=== PATIENT | female | born 1965 | race Caucasian/White ===

== ENCOUNTER 2016-11-27 02:20 | Inpatient (IN) | payer OTHER ==
--- NOTE | ~2016-11-27 | HP ---
Unit #: [id number] #: [id number] Patient: GANESH NEFF [id number] [address] [place], [place] [address] [id number] MR#: [id number] NAME: GANESH NEFF ROOM: 47 Age: 50 Sex: F Admission Date: 11/27/2016 : 1965 Attending Physician: Aretha Schrader M.D. Primary Care Physician: Yoselin Trevizo M.D. HISTORY AND PHYSICAL ADMISSION DIAGNOSES 1. Acute pancreatitis. 2. Tobacco use. 3. Hypokalemia. 4. Questionable hypertension. HISTORY OF PRESENT ILLNESS The patient is a 50-year-old female, a patient of Dr. Trevizo, well known to me secondary to previous admission last July for the similar problems with the acute pancreatitis. She comes in with complaints of epigastric sharp pain which she describes as "labor pain", 10/10 at the worst for three days, also complains of some nausea, denies any vomiting, denies any fever or chills, denies any chest pain, headache, dizziness or syncope. Also denies any dysuria, states that her pain started about three days ago and gradually getting worse, denies any bloody stools or hematemesis. REVIEW OF SYSTEMS A 12-point review of systems on this patient is basically negative except as above. PAST MEDICAL HISTORY Past medical history is significant for history of pancreatitis. PAST SURGICAL HISTORY Past surgical history is significant for tubal ligation. HOME MEDICATIONS None. ALLERGIES No known drug allergies. SOCIAL HISTORY She continues to smoke and is a lifetime smoker, denies any alcohol or illicit drugs. FAMILY HISTORY Unremarkable. PHYSICAL EXAMINATION GENERAL: Patient is a 50-year-old female not in acute distress. VITAL SIGNS: Blood pressure 174/93, heart rate 70, respirations 16, Unit #: [id number] #: [id number] Patient: GANESH NEFF temperature 97.8. HEENT: Head is atraumatic. Pupils equal, round and reactive to light and accommodation. Extraocular muscles intact. Oropharynx clear. NECK: Neck is supple. No mass. No JVD. No bruits. CHEST: Diminished at the bases but generally clear. CARDIOVASCULAR EXAM: S1, S2. No murmurs. ABDOMEN: Abdomen is soft but tender at the epigastric area. No rebound tenderness. Bowel sounds are present but diminished. EXTREMITIES: Lower extremities without any cyanosis, clubbing or edema. NEUROLOGIC: Neurologically patient grossly intact. No focal deficits. Alert and oriented x3. DIAGNOSTIC STUDIES LABORATORY: Lipase at 357, potassium of 3.3, blood glucose 115, otherwise unremarkable. White count 9.1, hemoglobin and hematocrit 13.3 and 40. ASSESSMENT AND PLAN 1. Rimci-qs-tfhecbn pancreatitis: Status post evaluation per GI. Follow up on MRCP ordered per Dr. Godoy. Continue gut rest. Continue IV fluids. 2. Tobacco use: Counseled on the importance of quitting. 3. Hypokalemia: Replace per protocol. Check magnesium level. 4. Questionable hypertension: Will treat with p.r.n. hydralazine. Consider discharging with the BP meds if still elevated once pancreatitis resolves and patient pain free. 5. GI and DVT prophylaxis: Continue PPI and SCDs. Dictated by Brandon Zheng M.D. OC/cf TD: 11/27/2016 20:59 JOB #: [id number] HISTORY AND PHYSICAL Page 1 of 1 X Brandon Zheng MD X HISTORY AND PHYSICAL
--- NOTE | ~2016-11-27 | CO ---
Unit #: [id number] #: [id number] Patient: GANESH NEFF [id number] [address] [address] [id number] I MR#: [id number] NAME: GANESH NEFF ROOM: 47 Age: 50 Sex: F Admission Date: 11/27/2016 : 1965 Attending Physician: Aretha Schrader M.D. Primary Care Physician: Yoselin Trevizo M.D. Consultation Date: 11/27/2016 CONSULTATION REPORT REASON FOR CONSULTATION Acute pancreatitis. HISTORY OF PRESENT ILLNESS The patient states she was in her usual state of health until about one week ago, when she began to have persistent epigastric pain which was reminiscent of her previous pancreatitis in 2014. 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 The patient denies alcohol abuse. At this time she denies any nausea or vomiting. She denies fever, chills, chest pain, shortness of breath, cough. PAST MEDICAL HISTORY 1. History of pancreatitis. 2. Bilateral tubal ligation. 3. History of anemia. 4. Anxiety. 5. Degenerative disk disease. SOCIAL HISTORY The patient is a half rfst-xhc-zii smoker. Denies alcohol or illicit drugs. FAMILY HISTORY Reviewed and noncontributory. ALLERGIES No known drug allergies. HOME MEDICATIONS None. REVIEW OF SYSTEMS A complete 10-point review of systems was completed and negative except for that mentioned in history of present illness. PHYSICAL EXAMINATION GENERAL: The patient is a pleasant 50-year-old female, currently in no acute distress. VITALS: Temperature 97.4, pulse 70, respiratory rate 18, blood pressure 109/70. HEENT: Pupils equally round and reactive to light and accommodation. NECK: Supple. LUNGS: Clear to auscultation. HEART: S1 and S2. Unit #: [id number] #: [id number] Patient: GANESH NEFF ABDOMEN: Soft, rounded, mild epigastric tenderness. Positive bowel sounds. NEUROLOGIC: The patient is alert, awake and oriented times three. DIAGNOSTIC STUDIES LABORATORY: CBC is normal. LFTs are normal. Lipase is 357, alcohol less than 5. ASSESSMENT/PLAN 1. Acute pancreatitis. Question source. Will check an MRCP. Continue supportive care for now. Further recommendations to follow MRCP. 2. Epigastric pain secondary to number one. Thank you for this interesting consult. Will continue to follow along. Dictated by... Yanique Culver A.P.R.N. for Ad Dawson/meng TD: 11/27/2016 16:17 JOB #: [id number] CONSULTATION REPORT Page 1 of 1 X X CONSULTATION REPORT
--- NOTE | ~2016-11-27 | MR145 ---
[facility] A Service of [facility] RADIOLOGY TEXT RESULTS PATIENT: GANESH NEFF LOCATION: [facility] 4709-10 : [birth year] UNIT #: [id number] AGE: [address]: Aretha Schrader MD SEX: F ORDER DR: [id number] [facility] [address] [facility] [place], [place] [address] [id number] MR#: [id number] Acc #: [id number] NAME: GANESH NEFF : 1965 SEX: F STUDY DATE/TIME: 11/27/2016 19:18 UNIT: [facility] ROOM: [facility] STUDY DESCRIPTION: MR MRCP WWo Contrast Attending Physician: Aretha Schrader M.D. Ordering Physician: Bryson Roach M.D. Primary Care Physician: Yoselin Trevizo M.D. MRI CENTER REPORT This report is preliminary unless electronic signature is present. EXAM MRI abdomen INDICATION Pancreatitis. Abdominal pain. TECHNIQUE Multiplanar MRI of the abdomen with and without contrast (10 mL MultiHance IV contrast). Thin and thick slab MRCP sequences were obtained. COMPARISON CT abdomen and pelvis, 07/23/2016 FINDINGS Unfortunately, the exam is degraded by some respiratory motion artifact. There is no evidence of a focal pancreatitis. There is mild prominence of the pancreatic duct in the pancreatic tail where it measures 2.0-3.0 mm in diameter. The remainder of the pancreatic tail is normal in caliber. No focal pancreatic mass. The liver is morphologically normal. No hepatic mass. Intrahepatic bile ducts are normal in caliber. Extrahepatic common duct is normal in size. Hepatic vasculature is patent. The gallbladder is normal. The spleen, adrenal glands and kidneys are within normal limits. No hydronephrosis. The abdominal aorta is normal in caliber. The bowel is not dilated. No abnormal bone marrow signal. IMPRESSION 1. No evidence of acute pancreatitis. 2. Focal area of borderline dilated pancreatic duct in the pancreatic [facility] A Service of [facility] RADIOLOGY TEXT RESULTS PATIENT: GANESH NEFF LOCATION: [facility]2-01 : [birth year] UNIT #: [id number] AGE: [address]: Aretha Schrader MD SEX: F ORDER DR: burton. There is no focal mass or lesion identified in the area of the transition. I would recommend a precautionary followup CT or MRI in 3-6 months. Dictated by... Randall Lal M.D. THIS IS AN ELECTRONICALLY VERIFIED REPORT Randall Lal M.D. at 11/28/2016 3:42 PM LILI/gladys TD: 11/28/2016 08:12 JOB #: [id number] MRI CENTER REPORT Page 1 of 1 COPY
[2016-11-27 01:35] LABS: BASOPHIL% 0.5 % (0-2.5); EOSINOPHIL# 0.1 X10e3 (0-0.7); EOSINOPHIL% 1.6 % (0.0-7.0); HEMOGLOBIN 13.3 gm/dL (12.0-16.0); LYMPHOCYTE# 2.5 X10e3 (1.0-3.5); LYMPHOCYTE% 27.9 % (17.0-45.0); MEAN CELL VOLUME 88.9 FL (83-96); MEAN CORPUSCULAR HEMOGLOBIN 29.5 PG (28-34); MEAN CORPUSCULAR HGB CONC 33.2 g/dL (30-36); MEAN PLATELET VOLUME 9.7 FL (6.5-11.5); MONOCYTE# 0.7 X10e3 (0-1.0); MONOCYTE% 8.1 % (3.0-12.0); NEUTROPHIL# 5.6 X10e3 (1.5-7.1); NEUTROPHIL% 61.9 % (40-75); PLATELET COUNT 217 X10e3 (140-420); RED CELL DISTRIBUTION WIDTH 12.9 % (11.0-15.5); WHITE BLOOD COUNT 9.1 X10e3 (4.0-10.5)
[2016-11-27 01:36] LABS: DIFF IND NO
[2016-11-27 01:56] LABS: ALBUMIN SERUM 3.6 g/dL (3.5-5.0); BILIRUBIN, DIRECT 0.1 mg/dL (0.0-0.2); BILIRUBIN,INDIRECT 0.4 mg/dL (0.0-0.9); BILIRUBIN,TOTAL 0.5 mg/dL (0.2-2.0); BUN/CREATININE RATIO 13.33; CALCIUM SERUM 8.8 mg/dL (8.4-10.2); CREATININE SERUM 0.6 mg/dL (0.6-1.4); POTASSIUM 3.3 mmol/L (3.5-5.1); PROTEIN TOTAL SERUM 6.9 g/dL (6.0-8.3)
[~2016-11-27 02:20] MED LIST: ALBUTEROL17 GM INH; AUGMENTIN PO; BENTYL10 MG PO; BENZONATATE PO; CIPRO PO; FLEXERIL10 MG PO; LORTAB 5/500 TA1 TA1 PO; LORTAB 7.5-5001 TAB PO; MEDROL PO; MEDROL4 MG/DOSE- PO; NO MEDICATIONS; ORUDIS75 M1 PO; PHENERGAN25 M1 PO; PREDNISONE PO; PROTONIX20 MG PO; VICODIN 5/500 T1 TAB PO
[2016-11-27 03:24] LABS: URINE SOURCE CLEAN CATCH
[2016-11-27 03:32] LABS: URINE APPEARANCE CLEAR; URINE BILIRUBIN NEG (NEG); URINE BLOOD NEG (NEG); URINE COLOR YELLOW; URINE GLUCOSE NEG (NEG); URINE KETONE NEG (NEG); URINE LEUKOCYTE ESTERASE TRACE (NEG); URINE NITRATE NEG (NEG); URINE PROTEIN NEG (NEG); URINE SPECIFIC GRAVITY 1.008 (1.003-1.035); URINE UROBILINOGEN 0.2 MG/DL (NEG)
[2016-11-27 03:36] LABS: CULTURE INDICATED? YES; URINE BACTERIA AUWI 2+ (NEGATIVE); URINE SQUAMOUS EPITHELIAL CELL FEW /[HPF]
[2016-11-28 04:01] LABS: BASOPHIL% 0.5 % (0-2.5); DIFF IND NO; EOSINOPHIL# 0.2 X10e3 (0-0.7); EOSINOPHIL% 2.1 % (0.0-7.0); HEMATOCRIT 36.2 % (35.0-45.0); LYMPHOCYTE% 25.3 % (17.0-45.0); MEAN CELL VOLUME 89.5 FL (83-96); MEAN CORPUSCULAR HEMOGLOBIN 29.6 PG (28-34); MEAN CORPUSCULAR HGB CONC 33.1 g/dL (30-36); MONOCYTE# 0.8 X10e3 (0-1.0); NEUTROPHIL% 62.1 % (40-75); PLATELET COUNT 177 X10e3 (140-420); RED BLOOD COUNT 4.04 X10e (3.90-5.30); RED CELL DISTRIBUTION WIDTH 12.6 % (11.0-15.5); WHITE BLOOD COUNT 8.1 X10e3 (4.0-10.5)
[2016-11-28 04:39] LABS: BILIRUBIN,TOTAL 0.3 mg/dL (0.2-2.0); BUN/CREATININE RATIO 8.33; CALCIUM SERUM 8.2 mg/dL (8.4-10.2); CREATININE SERUM 0.6 mg/dL (0.6-1.4); MAGNESIUM 1.7 mg/dL (1.6-3.0); POTASSIUM 3.8 mmol/L (3.5-5.1)
== END 2016-11-28 11:55 | disposition left against medical advice (07) | DRG 439 ==
LOC: CED 02:20 → CEDOF 06:09 → C4C 08:50
PROVIDERS: Internal Medicine Gastroenterology
DX: K85.00 Idiopathic acute pancreatitis without necrosis or infection (principal); Z68.1 Body mass index [BMI] 19.9 or less, adult; I10 Essential (primary) hypertension; K86.1 Other chronic pancreatitis; F17.210 Nicotine dependence, cigarettes, uncomplicated; E87.6 Hypokalemia; M19.90 Unspecified osteoarthritis, unspecified site; F41.9 Anxiety disorder, unspecified; Z98.51 Tubal ligation status
CPT/HCPCS: 36415; 74183; 80048; 80053; 80076; 81003; 82150; 83690; 83735; 85025; 87086; 87088; 87186; 96361; 96374; 96375; 96376; 99285; A9577; C9113; G0480; J1170; J2060; J2405; J3475